=== PATIENT | female | born 1955 | race Caucasian/White ===

== ENCOUNTER 2016-12-14 05:37 | Day surgery (SDC) | payer OTHER ==
[2016-12-14] VITALS (13 sets, daily range): BP systolic 101–129; BP diastolic 61–77; PULSE 58–72; RESP 10–22; O2SAT 73–98
[~2016-12-14] VITALS: Ht 174.6 cm; Wt 73.8 kg
[2016-12-14] MEDS: Lactated Ringer's 1,000 ML IV SCH ×4 (05:00→09:28)
[~2016-12-14 05:37] MED LIST: ALPR0.254 PO; CHOL100045 PO; CeFAZolin Inj 2 GM in IV Premix 1 EACH IV ONE; ESTR1TAB24 PO; ESTR42.52 VAGINAL; FEXO-46 PO; FLUT9.9S NS; Phenazopyridine 97.5 mg Tablet PO ONE
[2016-12-14] MEDS ORDERED: Furosemide 10 mg/mL 4 mL Inj ONE (05:38)
[2016-12-14] MEDS ORDERED: Phenylephrine/NS 100 mCg/mL 10 mL Syringe IVPUSH ONE (05:38)
[2016-12-14] MEDS ORDERED: fentaNYL-PF 50 mCg/mL 2 mL Inj ONE (05:38)
[2016-12-14] MEDS ORDERED: Propofol 10 mg/mL 20 mL Inj ONE (05:38)
[2016-12-14] MEDS ORDERED: Ondansetron 2 mg/mL 2 mL Inj ONE (05:38)
[2016-12-14] MEDS ORDERED: Succinylcholine Chloride 20 mg/mL 5 mL Inj ONE (05:38)
[2016-12-14] MEDS ORDERED: CeFAZolin Inj 2 gm / 50mL D5W IV ONE (06:06)
[2016-12-14] MEDS ORDERED: Phenazopyridine 97.5 mg Tablet ONE (07:54)
--- NOTE | 2016-12-14 08:20 | PCM.HPANE ---
Patient Data Surgeon Admitting Provider: Attending Provider:Reinaldo Strange MD Primary Care Physician:Jus Other Provider:Klaudia King Anesthesia Reason for Visit Stress Incontinence, Cystocele, Rectocele Ht/WT & BMI Height (Feet): 5 Height (Inches): 8.75 Weight (Kilograms): 71.4 Body Mass Index 23.00 Allergies Coded Allergies: No Known Allergies (Unverified , 12/09/16) Past Anesthesia History Anesthesia History: Denies:: Fam Anesthesia Reaction, Fam Malignant Hypertherm Diabetes History Hx Diabetes?: No MRSA MRSA: No Medications Home Meds Incl Beta Vinh: No Reported Medications Cholecalciferol (Vitamin D3) (Vitamin D)1,000 Unit Capsule1,000 Unit PO DAILY # 1 BOTTLE Ref 0 12/09/16 Alprazolam 0.25 Mg Tablet0.25-0.5 Mg PO TID PRN For Anxiety Ref 0 12/09/16 Estradiol (Estrace)42.5 Gm Cream.appl1 G VAGINAL 2X WEEK #1 TUBE Ref 0 12/09/16 Estradiol 1 Mg Tablet1 Mg PO DAILY Ref 0 12/09/16 Fluticasone Propionate (Flonase Allergy Relief)50 Mcg/Actuation Pryor.susp9.9 Ml NS DAILY 12/09/16 Discontinued Reported Medications Fexofenadine 60 Mg [id number] Mg PO DAILY 12/09/16 History History of ENT Problems?: No HEENT History: Positive for:: Sinus Problem (ALLERGIC RHINITIS) Denies:: Abnormal Airway Cataracts Difficult Intubation Dysphagia Glaucoma Hearing Problem TMJ Denture Type: None Teeth Condition: Within Normal Limits Hx of Heart Problems?: No Cardiovascular History: Denies:: AICD Abdominal Aortic Aneurism Atrial Fibrillation Cardiac Surgery Chest Pain Congestive Heart Failure Coronary Artery Disease Edema Heart Murmur Hypertension Irregular Heartbeat Pacemaker Peripheral Vascular Rheumatic Fever Thrombophlebitis Valvular Heart Disease Hx of Respiratory Problem?: No Respiratory History: Denies:: Use of C-PAP Machine Hx Neurologic Problems?: No Hx of GI Problems?: No Hx of Problems?: Yes Other History/Comment JIM Female Hx: Denies:: Currently Skin History: Denies:: History Skin Disorders? Pressure Ulcers Hx Musculoskeletal Problems?: Yes Musculoskeletal History: Positive for:: Osteoarthritis (HANDS) Hx of Psycho/Social Problems?: Yes Psycho Social History: Positive for:: Anxiety Other History/Comment stable Hx Surgeries?: Yes Hx Any Other Health Problems?: No Other History: Denies:: Cancer Endocrine Disease Hospitalization Thyroid Disease History Blood Transfusions: Denies:: Blood Transfusions Hx Diabetes: No Hx Alcohol Use: Yes (OCCAS.)Hx Substance Use: NoHave You Smoked inLast 12 mo: No Stop/Bang Treated for Sleep Apnea?: No Do You Have a CPAP Machine?: No S-Snoring: Do You Snore Loudly: No T-Tired: feel tired, fatigued: No O-Obsered: Observed not breath: No P-Blood Pressure: treated: No B- Body Mass Index > 35 kg/m2: No A- Age over 50: Yes N- Neck Large Circumference: No G- Gender Male: No NICK Total Score: 1 Risk Assessment Category Category 1A: Patient has history of documented sleep apnea, and HAS NOT received any narcotic, sedative or anesthesia administration during this stay. Category 1B: Patient has history of documented sleep apnea, and HAS received any narcotic , sedative or anesthesia administration during this stay Category 2: Patient has SUSPECTED Obstructive Sleep Apnea, and HAS received any narcotic , sedative or anesthesia administration during this stay. Category 3: Patient has SUSPECTED Obstructive Sleep Apnea and HAS NOT received narcotic, sedative or anesthesia administration during this stay. Category 4: Outpatient in Procedural Areas with known sleep apnea or who screen positive for High Risk via the STOP/BANG questionnaire. Exam Exam Vital Signs Vital Signs Date Time Temp Pulse Resp B/P Pulse Ox O2 Delivery O2 Flow Rate FiO2 12/14/16 06:26 36.4 72 16 112/68 96 Room Air General Appearance: Alert, Oriented X3, Cooperative HEENT/AIRWAY: MP 2 Lungs: Clear to Auscultation, Normal Air Movement Heart: Exam Unremarkable Meds/Labs/Diagnostics Admission Meds Current Medications Lactated Ringer's (Lr) 1,000 ml @ 120 mls/hr Q8H20M IV Last administered on 06:16; Start 12/14/16 at 05:00; Stop 12/14/16 at 13:19 Phenazopyridine HCl (Azo Standard) 2 tab STK-MED ONCE .ROUTE Last administered on 12/14/16 08:00; Start 12/14/16 at 07:54; Stop 12/14/16 at 07:56; Status DC Plan Impression Patient chart reviewed, patient interviewed and anesthestic plan with risks, benefits, and alternatives discussed, and informed consent obtained. ASA Physical Status: ASA2 Mod Systemic Disease Anesthetic Plan: GA Bene/Risks/Altern/Consents: Yes HP Complete Prior to Induction: Yes Fausto Milan MD Dec 14, 2016 08:20
[2016-12-14] MEDS ORDERED: Lidocaine 1%-Epi 1:100,000 20 mL Inj INFILTRATE ONE (09:14)
[2016-12-14] MEDS ORDERED: Lidocaine 1%-Epi 1:100,000 50 mL Inj INFILTRATE ONE (09:14)
[2016-12-14] MEDS ORDERED: 0.9% Sodium Chloride 10 mL Inj INJ ONE (09:15)
[2016-12-14] MEDS ORDERED: Gentamicin 40 mg/mL 2 mL Inj IRRIGATION ONE ×2 (09:18→10:01)
[2016-12-14] MEDS ORDERED: Estrogens Conjugated 30 Gm Vaginal Cream VAGINAL ONE (11:02)
[2016-12-14] MEDS ORDERED: Lactated Ringer's 1,000 ML IV SCH (12:11)
[2016-12-14] MEDS ORDERED: Lactated Ringer's 500 ML IV PRN (12:11)
--- NOTE | 2016-12-14 12:12 | PCM.ANEP1 ---
Post Anesthesia Phase 1 PACU Phase 1 Assessment Vital Signs Vital Signs Date Time Temp Pulse Resp B/P Pulse Ox O2 Delivery O2 Flow Rate FiO2 12/14/16 06:26 36.4 72 16 112/68 96 Room Air Anesthetic Administered: GA Level of Alertness: Sleepy, easy to arouse LOPEZ's with Equal Strength: Yes Pain: No Nausea or Vomiting: No Cardiovascular Function and Hy: Yes Oxygen Delivery: Room Air Lungs: Clear to Auscultation, Normal Air Movement Dermatome Level: Full Sensation Complications: No Fausto Milan MD Dec 14, 2016 12:12
[2016-12-14] MEDS ORDERED: Ondansetron 2 mg/mL 2 mL Inj IVPUSH PRN ×2 (12:15)
[2016-12-14] MEDS ORDERED: Acetaminophen IV 1,000 MG in IV Premix 1 EACH IV ONE (12:15)
[2016-12-14] MEDS ORDERED: Alum-Mag Hydrox-Simeth 30 mL Suspension PO PRN (12:15)
[2016-12-14] MEDS ORDERED: diphenhydrAMINE 25 mg Capsule PO PRN (12:15)
[2016-12-14] MEDS ORDERED: MetoCLOpramide 5 mg/mL 2 mL Inj IVPUSH PRN ×2 (12:15)
[2016-12-14] MEDS ORDERED: EPHEDrine Sulfate 50 mg/mL Inj IVPUSH PRN (12:15)
[2016-12-14] MEDS ORDERED: fentaNYL-PF 50 mCg/mL 2 mL Inj IVPUSH PRN (12:15)
[2016-12-14] MEDS ORDERED: Dexamethasone 4 mg/mL Inj IVPUSH PRN (12:15)
[2016-12-14] MEDS ORDERED: HYDROmorphone 1 mg/mL Inj IVPUSH PRN (12:15)
[2016-12-14] MEDS ORDERED: Phenylephrine 10,000 mCg/mL Inj IVPUSH PRN (12:15)
[2016-12-14] MEDS: 0.9% Sodium Chloride 1,000 ML IV SCH ×2 (13:35→21:12)
[2016-12-14] MEDS ORDERED: ALPRAZolam 0.25 mg Tablet PO PRN (13:50)
--- NOTE | 2016-12-14 14:03 | NUR ---
Post Op Pt arrived to [facility] rm 1024 at approx 1335. Rec'd report from Danielle in PACU. Pt arrived via gurney and was unable to awaken enough to move over to hospital bed. She was transferred via slider board and 4 person assist. IV running NS at 125. Draper patent and draining to gravity. Vag packing not observed, minimal serous/sang fluid on vandana pad. Pt complains of mild nausea due to activity. Room air sat at 98%. No complaints of pain, just mild cramping, feels like she has to have a BM. Unable to orient to room and call light at this time due to sedation level. Kpad applied for comfort and claudio alarm on.
[2016-12-14] MEDS ORDERED: Fluticasone 0.05% 15 Spray/2 Gm 16 Gm Nasal Spray NASAL PRN (15:25)
[2016-12-14] MEDS: oxyCODONE-Acetamin 5-325 mg Tablet PO PRN (19:18)
--- NOTE | 2016-12-15 00:55 | PCM.SURGOP ---
Surgical Operative Report Date of Service: Dec 14, 2016 Pre Operative Diagnosis 1. Vaginal vault prolapse 2. Cystocele, midline 3. Rectocele Post Operative Diagnosis 1. 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 POPQ stage 3 Cystocele and deficient pubovesical/pubocervical fascia 3. POPQ stage 2 Rectocele Procedure: 1. anterior repair with Xenform graft augmentation 2. posterior repair 3. high uterosacral ligament vaginal vault suspension and enterocele repair, cystoscopy 4. bilateral salpingectomy Surgeon and Jig Mill Operator: Surgeon: Reinaldo Strange MD Assistants: Grisel Billingsley Indication for Procedure Her assessment to date includes: 1. Vaginal atrophy N95.2 (627.3): 2. Vaginal vault prolapse 3. Cystocele, midline N81.11 (618.01): 4. Rectocele N81.6 (618.04): 5. No evidence of urodynamic stress incontinence The patient is a candidate for surgical prolapse management in the form of anterior repair and posterior repair with possible biologic graft augmentation, high uterosacral ligament vaginal vault suspension and enterocele repair, and possible bilateral salpingectomy/BSO if the adnexa are accessible. She does not require a sling. The patient signed the consent form. She agreed with the risks, benefits, and alternatives to surgery. The risks included but not limited to recurrence or persistence of prolapse, recurrence of persistence of incontinence, development of voiding dysfunction, development of urinary urgency, urgency incontinence, frequency, and need for intermittent self-catheterization or prolonged indwelling catheterization, injury to other organs including bladder, bowel, nerves or blood vessels. Need for blood transfusion, need for temporary colostomy or urinary stenting. Development of vaginal scarring, dyspareunia, defecatory dysfunction, recurring pain, hematoma formation, urinary tract infection, cellulitis, necrotizing fascitis, and medical risks including myocardial infarction, stroke or VTE. She also understood the FDA warnings associated with the use of vaginal graft (dysparunia, vaginal erosion, erosion into bowel/bladder/urethra, requiring further surgery to correct these complications). The patient understood the risks and benefits and consented to surgery. Findings: Peritoneal cyst (sent to pathology) see dictation Procedure Details SURGICAL TECHNIQUE: The patient was brought to the operating room and was placed under general anesthesia. She was prepped and draped in the normal fashion for vaginal surgery with the legs in Yellofin stirrups. Also, her hips were allowed to deflex periodically during the case to avoid any pressure on the nerves and lower limb joints. She was given a dose of IV ceftriaxone intraoperatively. She was given 200 mg oral pyridium prior to surgery. 1. Anterior colporrhaphy with Xenform graft augmentation: Lidocaine 0.5% with 1 /[id number] epinephrine was infiltrated along the anterior vaginal wall mucosa. A POPQ stage 3 anterior vaginal prolapse (cystocele) was noted. A midline vertical incision was made through the anterior vaginal wall. The vaginal wall was dissected off the underlying pubocervical and pubovesical fascia. The dissection was extended laterally beyond the ischiopubic rami. Bilateral paravaginal defects were noted. It was noted that the pubocervical and pubovesical fascial tissues were deficient. During the dissection along the apex, an enterocele sac was entered with sharp dissection. This was aided with the use of a gloved finger in the rectum to avoid penetrating the rectal mucosa. The rest of the anterior repair would be completed later in the procedure. 2. Bilateral salpingectomy, High uterosacral ligament vaginal vault suspension and enterocele repair, cystoscopy: Thin adhesions were noted in the pelvic cul- de-sac that were sharply and bluntly dissected to free the bowel and omentum. Several mini laparotomy sponges were packed to retract the bowel upwards. The ovaries were noted to be normal but deep in the pelvis. However the tubes were accessible bilaterally. The tubes were grasped with Babcocks, clamped at the based, and excised. The pedicles were tied with 0-vicryl and the tubes were sent to pathology. A pair of Allis clamps were placed along the intraperitoneal portions of the vagina at the 5 and 7 o'clock positions. Tension along these Allis clamps allowed for identification of the uterosacral ligaments bilaterally. The ureters were palpated to avoid penetrating them. A pair of 0 Vicryl sutures were passed around the uterosacral ligaments of the level of the ischial spines bilaterally, totalling 4. Cystoscopy was performed while tension was applied to these vault sutures. Brisk spillage of pyridium-stained urine was noted bilaterally at the ureteric orifices. Next, two 3-0 Prolene sutures were placed transversely through the cul-de-sac peritoneum. This was performed while using a gloved finger in the rectum as to avoid penetrating the underlying rectal mucosa. Tying these sutures obliterated the enterocele. The remainder of the anterior repair was then completed as follows: The cystocele was plicated in 2 layers, the first layer with 2-0 Vicryl suture in interrupted fashion, the second layer with 2-0 Tycron suture in an interrupted fashion. A trapezoidal piece of Xenform graft was then incorporated atop the plicated area far laterally. The graft was secured far laterally into the obturator internus membrane. At the level of the bladder neck, an upside down triangular piece of graft was excised so that there was no excessive-support along the level of the bladder neck. Apically, the graft was passed through the proximal uterosacral ligament sutures. A mild amount of anterior vaginal mucosa was required to be excised. The vault suspension sutures were passed through the planned site of the vaginal apex. The anterior vaginal mucosa was reapproximated with 3-0 vicryl suture in a running-locked fashion. The vault suspension sutures were tied and this elevated the apex of the vagina high up into the hollow of the sacrum. 3. Posterior colpoperineorrhaphy: Examination under anesthesia revealed that the posterior segment descended to the hymen (POPQ Stage 2). Lidocaine 0.5% with 1:200,000 of epinephrine was infiltrated along the perineum and posterior vaginal wall mucosa. A thin guillaume-shaped incision was made through the perineum and a vertical midline incision was made in the posterior vagina with a scalpel. The vaginal mucosa was dissected off the underlying rectovaginal tissues. It was noted the rectovaginal fascial tissues were not thin and deficient. The rectocele was plicated in one layer using 2-0 Vicryl suture in an interrupted fashion. A mild amount of excess posterior vaginal mucosa needed to be excised. The posterior vagina was then reapproximated using 3-0 Vicryl suture in a running locked fashion. Perineum was reapproximated using 2-0 Vicryl suture in an interrupted fashion. The skin was reapproximated using 3-0 Vicryl suture in a subcuticular fashion. 4. Cystoscopy: We then proceeded with cystoscopy. Cystoscopy revealed a normal appearing urethra and bladder. Both ureteric orifices were visualized and noted to be functional by the brisk spillage of pyridium-stained urine. This was observed numerous times. The bladder and urethra appeared normal. The 16F Draper catheter was then reinserted. The estimated blood loss was approximately 150 mL. There were no complications. 2000 mL of IV Lactated Ringer's was given. All sponges and instruments were accounted for. The patient was taken to the recovery room in stable condition. Complications There were no periprocedural complications identified. Surgical Specimen Removed: Yes Specimen sent to Pathology: Yes Surgical Specimen description: bilateral tubes peritoneal cyst Anesthetic Plan: GA Grafts, Implants: Grafts-See Implant Record Output, Estimated Blood Loss: 150 (ml EBL) Blood Administration during goddard: No Drains: None Catheters: Urethral 2 Way Draper Post Operative Plan overnight stay in bed as observation as she requires a voiding trial in the am copies to: MARYA Arcos; Reinaldo Strange MD; Grisel Billingsley William Andre Z MD Dec 15, 2016 00:55
--- NOTE | 2016-12-15 01:56 | NUR ---
Pain At beginning of shift patient complains of 7/10 pain, but voices her concern about getting constipated with using narcotics. Patient assured that stool softeners have been ordered for the morning. At the beginning of shift patient received 2 tabs percocet. Upon reassessment patient states no relief. Around 2100 patient was very anxious,crying, and concerned about not being about to have a BM . 0.5mg xanax was given for patients increased anxiety, but was unable to receive any relief. scheduled toradol was given, but did not provide any relief either. Patient finally agreed to try morphine 2mg IVP when pain was 10/10. 5mg reglan was given shortly after, due to complaints of nausea. Patient continued to cry from pain and anxiety until the morphine was effective. Currently patient is sleeping, and appears comfortable. Will continue to monitor for pain, and continue Q1 hour checks.
[2016-12-15 05:03] VITALS: BP 112/66; PULSE 87; RESP 16; O2SAT 96
[2016-12-15] MEDS: 0.9% Sodium Chloride 1,000 ML IV SCH ×2 (05:10→12:14)
[2016-12-15] MEDS: oxyCODONE-Acetamin 5-325 mg Tablet PO PRN ×3 (05:21→12:33)
[2016-12-15 06:29] LABS: BASOPHILS % (AUTO) 0.1 % (0-3); EOSINOPHILS % (AUTO) 0.1 % (0-5); Mean Corpuscular Hemoglobin 32.9 pg (27.0-35.0); Mean Corpuscular Volume 99.2 fL (81-100); NEUTROPHILS % (AUTO) 74.9 % (40-74); Platelet Count 299 bil/L (150-400)
[2016-12-15] MEDS ORDERED: Heparin 5,000 Unit/mL Inj SUBQ SCH (08:30)
[2016-12-15] MEDS ORDERED: Senna-Docusate 8.6-50 mg Tablet PO SCH (08:30)
[2016-12-15 08:45] VITALS: PULSE 74; RESP 18; O2SAT 94
[2016-12-15 10:43] VITALS: BP 108/63; PULSE 79; RESP 16; O2SAT 94
--- NOTE | 2016-12-15 11:53 | PCM.DIGYN ---
Surgical Discharge Instruction Dates of Hospitalization Date of Hospital Admission 12/14/16 outpatient overnight observation Providers Admitting Physician: Primary Care Physician: Nopcp Attending Physician: Reinaldo Strange MD Diagnosis at Time of Discharge Diagnosis at time of discharge 1. 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 POPQ stage 3 Cystocele and deficient pubovesical/pubocervical fascia 3. POPQ stage 2 Rectocele Post-operative diagnosis 1. 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 POPQ stage 3 Cystocele and deficient pubovesical/pubocervical fascia 3. POPQ stage 2 Rectocele Problems: Diet Discharge Diet: No restrictions Activity Discharge Activity-General: Restrict lifting to no greater than (10 lbs for 6 wk) Dressing and Incisional Care Hygiene: May shower Follow Up Plan Follow-up appointment: Weeks (2; also f/u with Dr. Strange's MA in 1 wk if home with nichols) Call your provider for: Fever, Chills, Shortness of breath, Vomitting, Heavy vaginal bleeding, Increasing pain Reinaldo Strange MD Dec 15, 2016 11:53
--- NOTE | 2016-12-15 12:04 | NUR ---
Voiding trial Voiding trial started at approx 1120. Vaginal packing removed. bladder emptied as much as possible, 300mls sterile water administered and nichols removed. Pt ambulated 3.5 times around hallways via SBA. Pt to [facility] and voided approx 400mls. Pt currently resting in bed awaiting discharge orders. Bed down and locked, call light w/in reach
--- NOTE | 2016-12-15 13:18 | PCM.PNSURG ---
Subjective Date of Service: Dec 15, 2016 Date of Service: Dec 15, 2016 Visit Information: Reason for Visit Stress Incontinence, Cystocele, Rectocele Surgery/Surgery Date SLING/ OOPHRECTOMY 12/14/16 Post-Op Day # 1 Subjective: avss DOING WELL passed voiding trial ambulating pain control with po analgesia OR explained Hct stable Postop General: No Complaints Gastrointestinal: Good Appetite Pain Management: PO Postop Activity: Ambulating Independently Objective Vital Sign- Last 8 Hours Date Time Temp Pulse Resp B/P Pulse Ox O2 Delivery O2 Flow Rate FiO2 12/15/16 10:43 36.9 79 16 108/63 94 Room Air 12/15/16 08:45 74 18 94 Room Air Intake and Output- Last 8 Hour 12/15/16 Cumulative From/Thru 07:00 12/09/16 18:22 - 12/15/16 05:52 Intake Total 1403 ml 3986 ml Output Total 150 ml 900 ml Balance 1253 ml 3086 ml Intake Oral 50 ml IV Total 1403 ml 3936 ml Output Urine Total 600 ml Estimated Blood Loss 150 ml 300 ml # Bowel Movements 0 General: Alert, Oriented X3, Cooperative Lungs: Clear to Auscultation Abdomen: Benign Catheters: None Result Diagram: 12/15/16 0555 Assessment & Plan Impression stable for discharge POD#1 Problems: Plan d/c home f/u in 2 wk VTE Prophylaxis: Sub-Q Heparin (Unfractionated) Resuscitation Status: CPR: Attempt Resuscitation copies to: Reinaldo Strange MD, William Andre Z MD Dec 15, 2016 13:18
--- NOTE | 2016-12-15 13:19 | NUR ---
Discharge Pt d/c'd home at approx 1315. Reviewed d/c instructions w/ patient. Answered all questions. Pt requests call to [facility] [employer] for insurance verification. Spoke to Danielle at [facility] pharmacy, they do take her insurance and have RX in stock. IV d/c'd intact. Pt taken to her friend's POV via w/c w/ all belongings and hard copy of RX.
--- NOTE | 2016-12-16 13:35 | PATH ---
SURGICAL PATHOLOGY Attending Physician:Reinaldo Strange, CASE STATUS: Signed Out PATIENT NAME: TARA CAR PID: [id number] : 1955 DATE COLLECTED:12/14/2016 21:06 SPECIMEN: 1: Peritoneum, Biopsy or Resection 2: Fallopian Tube, Biopsy 3: Fallopian Tube, Biopsy CLINICAL HISTORY: STRESS INCONTINENCE, CYSTOCELE, RECTOCELE 1). PERITONEAL MASS, OUT @ 9:00 TIF 09:02 2). LEFT FALLOPIAN TUBE, OUT @ 9:05 TIF 9:05 3). RIGHT FALLOPIAN TUBE OUT @ 9:28 TIF 9:30 FINAL DIAGNOSIS: 1.SPECIMEN DESIGNATED PERITONEAL MASS: ADIPOSE TISSUE, PARTIALLY NECROTIC, WITH A CONFIGURATION SUGGESTING NECROTIC APPENDIX EPIPLOICA. NEGATIVE FOR ATYPIA AND MALIGNANCY. 2. 3.LEFT AND RIGHT FALLOPIAN TUBES: NO SIGNIFICANT PATHOLOGIC CHANGE. ICD10 CODE N81.6 N81.10 GROSS DESCRIPTION: The specimen is received in three formalin filled containers labeled with the patient's name. 1). The specimen is sublabeled "peritoneal mass" and consists of a yellow-owen portion of tissue which measures 1.6 x 1.3 x 0.6 CM. The specimen is inked blue. The specimen is sectioned into 6 pieces and entirely submitted in cassettes 1A, 1B. 2). The specimen is sublabeled "left fallopian tube" and consists of a mcgill-owen cylindrical-shaped portion of tissue which measures 3.0 x 0.7 x 0.7 CM. The specimen is inked blue. The specimen is sectioned into multiple pieces and entirely submitted in cassette 2A. 3). The specimen is sublabeled "right fallopian tube" and consists of 3 pink-owen rough partial cylindrical shaped portions of tissue which aggregate to 2.3 x 1.0 x 1.0 CM. The specimen is inked blue. The specimen is sectioned into multiple pieces and entirely submitted in cassettes 3A, 3B. 12/14/2016 [facility] MICRO DESCRIPTION: See diagnosis. ICD-9 CODES: CPT CODES: 1: 81385 2: 76757 3: 47174 Electronically Signed Out Bj Jewell MD [facility] Pathology [facility] [address] [place] [address] Technical component performed at [facility], [address], [place], [address]
== END 2016-12-15 13:17 | disposition home or self-care (01) ==
LOC: SAS 05:37 → OSC 13:25 → SAS 12-15 13:17
PROVIDERS: ATTEND Obstetrics & Gynecology
PROC: 0UQF0ZZ Repair Cul-de-sac, Open Approach (ICD-10-PCS; 2016-12-14)
PROC: 0JQC0ZZ Repair Pelvic Region Subcutaneous Tissue and Fascia, Open Approach (ICD-10-PCS; 2016-12-14)
PROC: 0JUC0KZ Supplement of Pelvic Region Subcutaneous Tissue and Fascia with Nonautologous Tissue Substitute, Open Approach (ICD-10-PCS; 2016-12-14)
PROC: 0USG0ZZ Reposition Vagina, Open Approach (ICD-10-PCS; principal; 2016-12-14 08:30)
DX: N99.3 Prolapse of vaginal vault after hysterectomy (principal); N39.3 Stress incontinence (female) (male); N81.11 Cystocele, midline; N81.6 Rectocele; N39.41 Urge incontinence; R39.14 Feeling of incomplete bladder emptying; N95.2 Postmenopausal atrophic vaginitis; Z87.891 Personal history of nicotine dependence; N30.30 Trigonitis without hematuria
CPT/HCPCS: 36415; 57265; 57267; 57283; 85025; 86850; 88305; 94640; C1763; J0131; J0330; J0690; J1580; J1644; J1885; J1940; J2250; J2270; J2370; J2405; J2765; J3010; J7030; J7120